=== PATIENT | female | born 1960 | race Two or more races ===

== ENCOUNTER 2019-01-02 14:52 | Emergency (ER) | payer OTHER ==
[~2019-01-02] VITALS: Ht 162.6 cm; Wt 87.1 kg
[2019-01-02] MEDS ORDERED: NKM (14:54)
[2019-01-02 15:13] VITALS: BP 150/92
[2019-01-02] MEDS ORDERED: HYDROcodone/Acetamin 7.5/325 tab ORAL ONE (16:15)
--- NOTE | 2019-01-02 16:15 | Emergency Room Report ---
History of Present Illness General Chief Complaint: Earache Source: Patient, EMS Present Illness HPI 58 YO Female right ear pain that is 10 out of 10 in severity pain in the right ear progressive 4 days. Patient reports tenderness to the external ear. Denies discharge, patient does report strip TMJ with trigeminal neuralgia as wall she states that her pain has been exacerbated due to ear pain. Patient denies ear trauma she denies dizziness, syncope, changes in her hearing or tinnitus. Patient reports some nasal congestion denies any aggravating or relieving factors otherwise. Has history of immunocompromise or diabetes Allergies: Coded Allergies: PENICILLINS (Verified Allergy, Unknown, 01/02/19) Patient History Past Medical History: see triage record Past Surgical History: none Pertinent Family History: none Last Menstrual Period: hysterectomy done Immunizations: UTD Reviewed Nursing Documentation: PMH: Agreed; PSxH: Agreed Nursing Documentation-PMH Past Medical History: No History, Except For Hx Asthma: Yes History Of Psychiatric Problem: Yes Review of Systems All Other Systems: negative except mentioned in HPI Physical Exam Vital Signs Date Time Temp Pulse Resp B/P (MAP) Pulse Ox O2 Delivery O2 Flow Rate FiO2 01/02/19 14:50 98.1 114 18 150/92 95 Room Air Sp02 EP Interpretation: reviewed, normal General Appearance: no apparent distress, alert, GCS 15, non-toxic Head: normocephalic, atraumatic Eyes: bilateral eye normal inspection, bilateral eye PERRL ENT: hearing grossly normal, normal voice, nasal congestion, other - Right Canal is Erythematous and swollen, TM is WNL, no evidence of rupture. Neck: full range of motion, no meningismus Respiratory: lungs clear, normal breath sounds, speaking full sentences Cardiovascular #1: regular rate, rhythm, no edema Musculoskeletal: back normal, gait/station normal, normal range of motion, non- tender Neurologic: alert, oriented x3, responsive, motor strength/tone normal, sensory intact, speech normal, grossly normal Psychiatric: judgement/insight normal, other - labile emotions Skin: normal color, no rash, warm/dry, well hydrated Lymphatic: no adenopathy Medical Decision Making PA Attestation Dr. Blake is my supervising Physician whom patient management has been discussed with. Diagnostic Impression: Primary Impression: Otitis externa of right ear Qualified Codes: H60.501 - Unspecified acute noninfective otitis externa, right ear ER Course 58 YO Female right ear pain that is 10 out of 10 in severity pain in the right ear progressive 4 days. Patient reports tenderness to the external ear. Denies discharge, patient does report strip TMJ with trigeminal neuralgia as wall she states that her pain has been exacerbated due to ear pain. Patient denies ear trauma she denies dizziness, syncope, changes in her hearing or tinnitus. Patient reports some nasal congestion denies any aggravating or relieving factors otherwise. Has history of immunocompromise or diabetes Ddx considered but are not limited to OM, OE, mastoiditis, TM perforation, FB, shingles just to name a few. She affect and motions are labile she is tearful on occasion and and normal with rapid speech shortly after. Evidence of relining psychiatric condition. Vital signs: Tachycardic initially, normal on re-eval. remaining VS are WNL, pt. is afebrile H&PE are most consistent with otitis Externa ORDERS: none required at this time, the diagnosis is clinical ED INTERVENTIONS: -Toradol IM -[place] PO -I do not identify an emergent condition at this time. With current presentation , pt. is stable for close outpatient follow up and conservative treatment. D/ w pt. to return promptly to ED with worsening or new symptoms.- Pt. verbalizes' understanding and agreement with proposed treatment plan. DISCHARGE: At this time pt. is stable for d/c to home. With PO ABX. Will provide printed patient care instructions, and any necessary prescriptions. Care plan and follow up instructions have been discussed with the patient prior to discharge. Last Vital Signs Date Time Temp Pulse Resp B/P (MAP) Pulse Ox O2 Delivery O2 Flow Rate FiO2 01/02/19 15:13 98.1 75 18 150/92 95 Room Air Disposition: HOME, SELF-CARE Condition: Stable Scripts Carbamazepine (CARBAMAZEPINE) 100 Mg Cpmp.12hr 100 MG ORAL TWICE A DAY for 5 Days, #10 CAP Prov: Aster Phillips 01/02/19 Neomycin/Polymyxin B Sulf/Hc* (CORTISPORIN EAR SOLUTION*) 10 Ml Solution 4 DROP RIGHT EAR QID for 7 Days, #10 ML 0 Refills Prov: Aster Phillips 01/02/19 Patient Instructions: Otitis Externa, [id number] Additional Instructions: Take medications as directed. Follow up with a Primary Care Provider in 3-5 days, even if your symptoms have resolved. --Please review list of primary care clinics, if you do not already have a primary care provider Return sooner to ED if new symptoms occur, or current symptoms become worse. - Please note that this Emergency Department Report was dictated using [employer] therapist technology software, occasionally this can lead to erroneous entry secondary to interpretation by the dictation equipment. Aster Phillips Jan 02, 2019 16:15
[2019-01-02] MEDS ORDERED: CORTISPORIN EAR10 ML RIGHT EAR ×2 (16:21→21:28)
[2019-01-02] MEDS ORDERED: CARBAMAZEPINE100 M1 ORAL ×2 (16:21→21:28)
[2019-01-02 17:29] VITALS: BP 144/85
[2019-01-02] MEDS ORDERED: Ketorolac 30mg Inj IM ONE (17:30)
== END 2019-01-02 17:31 | disposition home or self-care (01) ==
LOC: EDBD 14:52 → EMR 15:24
DX: H60.501 Unspecified acute noninfective otitis externa, right ear (principal); Z88.0 Allergy status to penicillin; Z90.710 Acquired absence of both cervix and uterus
CPT/HCPCS: 96372; 99283; J1885